=== PATIENT | female | born 1985 | race Caucasian/White ===

== ENCOUNTER → 2017-06-20 | Emergency (ER) | payer MEDICAID, OTHER ==
--- NOTE | 2017-06-20 17:54 | NUR ---
PT CURRENTLY NOT IN WAITING ROOM.
--- NOTE | 2017-06-20 18:01 | NUR ---
PT STILL NOT IN WAITING ROOM.
== END | disposition home or self-care (01) ==
LOC: ER 17:47
DX: Z53.21 Procedure and treatment not carried out due to patient leaving prior to being seen by health care provider (principal)